=== PATIENT | female | born 1950 | race Caucasian/White ===

== ENCOUNTER 2018-01-17 05:16 | Day surgery (SDC) | payer OTHER ==
[2018-01-15 10:33] LABS: BASOPHILS % (AUTO) 0.4 % (0.0-2.0); EOSINOPHILS % (AUTO) 0.1 % (0.0-4.0); HEMATOCRIT 41.1 % (36-48); HEMOGLOBIN 13.9 g/dL (12.0-16.0); LYMPHOCYTES # (AUTO) 1.2 K/uL (2.5-16.5); LYMPHOCYTES % (AUTO) 14.8 % (20.5-51.1); MEAN CORPUSCULAR HEMOGLOBIN 30 pg (27-31); MEAN CORPUSCULAR HGB CONC 34 g/dL (33-37); MEAN CORPUSCULAR VOLUME 87.8 fL (80-94); MONOCYTES # (AUTO) 0.4 K/uL (0.8-1.0); MONOCYTES % (AUTO) 4.5 % (1.7-9.3); NEUTROPHILS # (AUTO) 6.7 K/uL (1.8-7.7); NEUTROPHILS % (AUTO) 80.2 % (42.2-75.2); PLATELET COUNT (AUTO) 178 K/uL (140-450); RED BLOOD CELL COUNT(AUTO) 4.68 MIL/uL (4.20-5.40); RED CELL DISTRIBUTION WIDTH 13.6 % (11.6-13.7); WHITE BLOOD COUNT (AUTO) 8.3 K/uL (4.8-10.8)
[2018-01-15 11:32] LABS: ALBUMIN 3.9 g/dL (3.4-5.0); ANION GAP 9.9 (8-16); CARBON DIOXIDE 29.3 mmol/L (21-32); CREATININE 0.8 mg/dL (0.6-1.3); POTASSIUM 4.2 mmol/L (3.5-5.1); TOTAL BILIRUBIN 0.3 mg/dL (0.0-1.0)
[~2018-01-17] VITALS: Ht 157.5 cm; Wt 70.3 kg
[2018-01-17] MEDS ORDERED: CEFAZOLIN SODIUM 1 GM/D5W PM 50 ML IV SCH (07:10)
[2018-01-17] MEDS ORDERED: BUPIVACAINE-MPF 0.5% 30 ML VIAL INJ ONE (08:21)
[2018-01-17] MEDS ORDERED: fentaNYL 0.05 MG/ML VIAL ONE (08:43)
[2018-01-17] MEDS ORDERED: MIDAZOLAM 2 MG/2 ML VIAL ONE (08:43)
[2018-01-17] MEDS ORDERED: SUCCINYLCHOLINE CHLORIDE 200 MG/10 ML VIAL IVP ONE (08:49)
[2018-01-17] MEDS ORDERED: LIDOCAINE 2% 100 MG/5 ML SYR IVP ONE (08:49)
[2018-01-17] MEDS ORDERED: NEOSTIGMINE 1:1000 10 MG/10 ML VIAL ONE (08:49)
[2018-01-17] MEDS ORDERED: DEXAMETHASONE 4 MG/ML VIAL ONE (08:49)
[2018-01-17] MEDS ORDERED: ROCURONIUM 50 MG/5 ML VIAL IV ONE (08:49)
[2018-01-17] MEDS ORDERED: DESFLURANE 240 ML BTL INH ONE (08:49)
[2018-01-17] MEDS ORDERED: GLYCOPYRROLATE 0.2 MG/ML VIAL ONE (08:49)
[2018-01-17] MEDS ORDERED: ONDANSETRON 4 MG/2 ML VIAL ONE (08:49)
[2018-01-17] MEDS ORDERED: PROPOFOL 200 MG/20 ML VIAL IV ONE (08:49)
[2018-01-17] MEDS ORDERED: ONDANSETRON 4 MG/2 ML VIAL IVP PRN (09:20)
[2018-01-17] MEDS ORDERED: HYDROmorphone 1 MG/ML AMP IVP PRN ×2 (09:20→10:45)
[2018-01-17] MEDS ORDERED: BLOOD GLUCOSE MONITORING 1 DEV DEV FS SCH (09:20)
[2018-01-17] MEDS: HYDROmorphone PFS 2 MG/ML SYR ONE ×4 (10:42→11:12)
[2018-01-17] MEDS ORDERED: MORPHINE SULFATE 4 MG/ML SYR IV PRN (10:45)
[2018-01-17] MEDS ORDERED: MORPHINE SULFATE 2 MG/ML SYR IVP PRN (10:45)
[2018-01-17] MEDS ORDERED: ONDANSETRON 4 MG/2 ML VIAL IV PRN (10:45)
[2018-01-17] MEDS ORDERED: HYDROcodone/APAP 5/325 MG 1 TAB TAB PO PRN (10:45)
[2018-01-17] MEDS ORDERED: NACL 0.9% 1,000 ML IV SCH (10:45)
[2018-01-17] MEDS ORDERED: ACET-2869 PO (12:19)
== END 2018-01-17 13:07 | disposition home or self-care (01) ==
LOC: MDS 05:16 → MMU 06:00 → MDS 13:07
PROVIDERS: ATTEND Surgery
DX: K80.20 Calculus of gallbladder without cholecystitis without obstruction (principal); I10 Essential (primary) hypertension; E11.9 Type 2 diabetes mellitus without complications; E78.5 Hyperlipidemia, unspecified; Z86.73 Personal history of transient ischemic attack (TIA), and cerebral infarction without residual deficits; Z79.899 Other long term (current) drug therapy
CPT/HCPCS: 36415; 47562; 71045; 80053; 82374; 82948; 85025; 86886; 86900; 86901; 88304; 93005; C1887; J0330; J0690; J1100; J1170; J2001; J2250; J2405; J2704; J2710; J3010; J3490; J7030